=== PATIENT | male | born 1960 | race Caucasian/White ===

== ENCOUNTER 2023-03-08 06:50 | Emergency (ER) | payer OTHER, SELFPAY ==
[2023-03-08] VITALS (26 sets, daily range): BP systolic 89–115; BP diastolic 41–68; PULSE 86–103; RESP 18; TEMP 36.3–36.7; O2SAT 93–98; BMI 47.8
--- NOTE | 2023-03-08 07:22 | CRLHL7_ITS ---
For Patients: As a result of the Century Cures Act, medical imaging exams and procedure reports are released immediately into your electronic medical record. You may view this report before your referring provider. If you have questions, please contact your health care provider. Indication: Scrotal and perineal pain and swelling. Diabetes. Technique: CT examination of the pelvis was performed. Contrast was not administered. Imaging was acquired from below the umbilicus through the upper thighs. Sagittal and coronal reformatted imaging was performed. Please note that all CT scans at this facility use dose modulation, iterative reconstruction, and/or weight-based dosing when appropriate to reduce radiation dose to as low as reasonably achievable. Comparison: None Findings: There is cutaneous and subcutaneous induration of the perineum and especially the scrotum. A small amount of fluid is noted in the scrotal sac. There is considerable gas within the scrotal sac and the surrounding perineal soft tissues. No definite measurable collection. 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 Appropriate emergent consultation recommended. Discussed with Dr. Sr at 9:12 a.m. on March 08, 2023 Impression: Findings consistent with Sofy`s gangrene. Please note that all CT scans at this facility use dose modulation, iterative reconstruction, and/or weight-based dosing when appropriate to reduce radiation dose to as low as reasonably achievable. Dictated by Sanket Pride MD @ 03/08/2023 9:13:35 AM (Electronically Signed)
--- NOTE | 2023-03-08 07:25 | ED_ITS ---
HPI - General Adult General Chief complaint: Unspecified Complaint, Adult Stated complaint: testicles swollen/infected Time Seen by Provider: 03/08/23 07:10 History of Present Illness HPI narrative: pt states seen urgent care thursday. states abcess in groin with pus, told it wasnt big enough to drain at the time. states yesterday testicles started swelling. ibuprofen 600 at 0500. rx sulfa-trimeth abx. 62-year-old man presenting to the emergency department with concern of scrotal and perineal swelling and pain. Apparently does have a history of a perineal abscess drained in urgent care office maybe a year ago. Seen 2 days ago by same provider in same office apparently and reviewing notes from this encounter it appears that there was not evidence of cellulitis on exam but some ?mild swelling and tenderness? in the right joon scrotal area and without scrotal involvement. Was diagnosed with cellulitis and initiated on Bactrim. It has since swelled quite a bit. He says he is having difficulty urinating as this penis has disappeared. Has started draining some pus in the area and he acknowledges that it smells bad. Last night did have some chills but otherwise has not measured a fever. Pain is intense now. He does not know whether not he had sat on his scrotum. No abdominal pain otherwise. Underlying history of metastatic prostate cancer with history of hormone treatments. Also had radiation. Hospital cares been at [facility] Home Medications Medication Instructions Recorded Confirmed blood sugar diagnostic (FreeStyle 03/08/23 03/08/23 Lite Strips) dulaglutide 1.5 mg/0.5 mL 1.5 mg subcut 03/08/23 subcutaneous pen injector ([facility]) glipizide 10 mg tablet, extended 10 mg PO DAILY 03/08/23 03/08/23 release 24 hr insulin glargine-yfgn 100 unit/mL 75 unit subcut DAILY 03/08/23 03/08/23 (3 mL) subcutaneous pen losartan 50 mg tablet 50 mg PO DAILY 03/08/23 03/08/23 metformin 1,000 mg tablet 1,000 mg PO BID 03/08/23 03/08/23 relugolix 120 mg tablet (Orgovyx) 120 mg PO DAILY 03/08/23 03/08/23 sulfamethoxazole 800 1 tab PO BID 03/08/23 03/08/23 mg-trimethoprim 160 mg tablet tamsulosin 0.4 mg capsule 0.4 mg PO DAILY 03/08/23 03/08/23 triamterene 37.5 1 tab PO DAILY 03/08/23 03/08/23 mg-hydrochlorothiazide 25 mg tablet Allergies Allergy/AdvReac Type Severity Reaction Status Date / Time No Known Drug Allergies Allergy Verified 03/08/23 07:02 Review of Systems Status of ROS: Reports: 6 or more systems reviewed and unremarkable except as noted in History and below PFSH [facility] Social History Smoking Status: Current every day smoker How often do you have a drink containing alcohol: never AUDIT-C Alcohol total score: 0 Non-prescribed substance use: denies use Exam Narrative: Exam Narrative: Pleasant. Seated with loose shorts legs spread in a chair when I enter the room. There is certainly a malodorous smell in the room. Upon removing his underwear there is some staining consistent with some purulent drainage. Clearly very uncomfortable with transitions. Is breathing easily limited by body habitus otherwise. Heart is in an elevated rate. Was tachycardic on triage. Abdomen is obese soft and nontender. Examination of the genitourinary/perineal area shows softball size scrotum. It is soft. Mildly erythematous but not overtly cellulitic with only minimal calor. The penis has disappeared into the swelling. Exquisitely tender generally to palpation. On the underside is an oval darkened/black and/cade patch of skin maybe a little more than 2 in in maximal dimension. Within this palpates crepitus consistent with subcutaneous gas. Further along the perineum there is a quarter-sized area of pinker erythema with a central punctum from where I believe purulence is coming. This is right of midline. Mildly swollen here and also tender. Const: Vital Signs, click to edit/add: Vital Signs - 24 hr 03/08/23 06:59 03/08/23 07:40 03/08/23 07:45 Temperature 98.1 F 97.5 F L Pulse Rate [Left P ulse Oximeter] 103 H 91 Respiratory Rate 18 18 Respiratory Rate [ Testicular] 18 Blood Pressure [Ri ght Upper Arm] 115/68 97/47 L Pulse Oximetry 96 93 Oxygen Delivery Me thod Room Air Room Air 03/08/23 08:00 03/08/23 08:40 Temperature 97.4 F L Pulse Rate [Left P ulse Oximeter] 90 89 Respiratory Rate 18 18 Respiratory Rate [ Testicular] Blood Pressure [Ri ght Upper Arm] 91/50 L 98/52 L Pulse Oximetry 94 97 Oxygen Delivery Me thod Room Air Room Air Documenting provider has reviewed patient's vital signs: yes Course Vital Signs Vital signs: Initial Vital Signs Temperature 98.1 F 03/08/23 06:59 Temperature Source Temporal Artery Scan 03/08/23 06:59 Pulse Rate 103 H 03/08/23 06:59 Respiratory Rate 18 03/08/23 06:59 Blood Pressure 115/68 03/08/23 06:59 Blood Pressure Mean 83 03/08/23 06:59 Blood Pressure Position Sitting 03/08/23 06:59 Pulse Oximetry 96 03/08/23 06:59 Oxygen Delivery Method Room Air 03/08/23 06:59 Vital Signs Temperature 98.1 F 03/08/23 06:59 Pulse Rate 103 H 03/08/23 06:59 Respiratory Rate 18 03/08/23 06:59 Blood Pressure 115/68 03/08/23 06:59 Pulse Oximetry 96 03/08/23 06:59 Oxygen Delivery Method Room Air 03/08/23 06:59 Temperature 97.4 F L 03/08/23 08:40 Pulse Rate 89 03/08/23 08:40 Respiratory Rate 18 03/08/23 08:40 Blood Pressure 98/52 L 03/08/23 08:40 Pulse Oximetry 97 03/08/23 08:40 Oxygen Delivery Method Room Air 03/08/23 08:40 Medical Decision Making MDM Narrative Medical decision making narrative: Placed rolled towels to elevate scrotum in the bed. I have significant concerns regarding gangrenous material here. Will be collecting blood cultures as well. Will need a pelvic CT scan. Sofy's gangrene is in differential beyond simple perineal abscess. I suppose there could be some secondary orchitis as well. Anticipate surgical consult and antibiotics. I would have concerns of evolving sepsis. 0825 - I had a couple conversations with general surgeon Dr. Casas who shares above concerns. Labs are returning confirming evidence of sepsis. Blood pressure is little soft. Initially 115 systolic now 91 systolic on repeated measurements. Zosyn and vanco ordered at this point. Creatinine already at 2.4. CT of pelvis will be now done without contrast; gas should still be visible. Corrected sodium of 131 [facility] is at capacity. We have contacted [place] who do have ICU beds. I did review these pelvic images and looks to have subcutaneous gas consistent with exam. Abscess noted as well as generalized inflammatory changes in the perineum. Over-read pending. 912 -- I spoke with Radiology who confirms findings consistent with Sofy's gangrene Systolic blood pressure 105 with a map of 66 Final Report: Indication: Scrotal and perineal pain and swelling. Diabetes. Technique: CT examination of the pelvis was performed. Contrast was not administered. Imaging was acquired from below the umbilicus through the upper thighs. Sagittal and coronal reformatted imaging was performed. Please note that all CT scans at this facility use dose modulation, iterative reconstruction, and/or weight-based dosing when appropriate to reduce radiation dose to as low as reasonably achievable. Comparison: None Findings: There is cutaneous and subcutaneous induration of the perineum and especially the scrotum. A small amount of fluid is noted in the scrotal sac. There is considerable gas within the scrotal sac and the surrounding perineal soft tissues. No definite measurable collection. 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 Appropriate emergent consultation recommended. Discussed with Dr. Sr at 9:12 a.m. on March 08, 2023 Impression: Findings consistent with Sofy`s gangrene. Please note that all CT scans at this facility use dose modulation, iterative reconstruction, and/or weight-based dosing when appropriate to reduce radiation dose to as low as reasonably achievable. Dictated by Sanket Pride MD @ 03/08/2023 9:13:35 AM Pending conversation again with [place], am hopeful for transport there for further cares at change of shift Lab Data Lab results reviewed: Yes I reviewed the patient's lab results Labs: Lab Results 03/08/23 Range/Units 07:40 WBC 28.30 H* (4.50-11.00) K/uL RBC 4.20 L (4.30-5.90) m/uL Hgb 11.5 L (13.5-17.5) gm/dL Hct 33.5 L (37.0-53.0) % MCV 80 (80-100) fL MCH 27 (26-34) pg MCHC 34 (32-36) gm/dL RDW Coeff of Kati 13.1 (11.5-15.5) % Plt Count 368 (140-440) K/uL Neut % (Auto) 90.0 H (42.0-72.0) % Lymph % (Auto) 2.7 L (20-44) % [place] % (Auto) 5.5 (0.0-11.0) % Eos % (Auto) 0.2 (0.0-7.0) % Baso % (Auto) 0.1 (0.0-3.0) % Neut # (Auto) 25.50 H (1.7-7.0) K/uL Lymph # (Auto) 0.80 L (0.90-2.90) K/uL [place] # (Auto) 1.60 H (0.00-0.90) K/UL Eos # (Auto) 0.10 (0.00-0.50) K/uL Baso # (Auto) 0.00 (0.00-0.30) K/uL Abs Immat Gran (auto) 0.40 H (0.00-0.30) K/uL Imm/Tot Granulo (auto) 1.5 % Diff Slide Review Acceptable Review (Acceptable) Sodium 124 L* (135-149) mmol/L Potassium 3.9 (3.6-5.1) mmol/L Chloride 91 L (96-114) mmol/L Carbon Dioxide 17 L (20-32) mmol/L BUN 40 H (7-30) mg/dL Creatinine 2.4 H (0.5-1.5) mg/dL Estimated Creat Clear 30.22 Estimated GFR 30 ml/min Glucose 568 H* (60-115) mg/dL Lactate 2.1 H (0.5-1.9) mmol/L Calcium 8.3 L (8.4-10.6) mg/dL C-Reactive Protein 25.3 H (0.5-1.0) mg/dL Critical Care Time Critical Care Time Critical Care Time: Yes Attestation: The patient required my highest level preparedness to intervene emergently and I personally spent this critical care time directly and personally managing the patient. This critical care time included: Obtaining a history; Examining the patient; Pulse oximetry; Ordering and reviewing of studies; Arranging urgent treatment with development of a management plan; Evaluation of patients response to treatment; Frequent reassessment discussions with other providers. This critical care time was performed to assess and manage the high probability of imminent life-threatening deterioration that could result in multiorgan failure. It was exclusive of separate billable procedures and treating other patients and teaching time. Total Critical Care Time in Minutes: 60 Discharge Plan Discharge Clinical Impression: Abscess of deep perineal space, Sofy's gangrene, Sepsis Patient Disposition: Pending Disposition Prescriptions: No Action losartan 50 mg tablet 50 mg PO DAILY glipizide 10 mg tablet extended release 24hr 10 mg PO DAILY (DME) FreeStyle Lite Strips Strip MISCELLANEOUS BID sulfamethoxazole-trimethoprim 800-160 mg tablet 1 tab PO BID tamsulosin 0.4 mg capsule 0.4 mg PO DAILY metformin 1,000 mg tablet 1,000 mg PO BID triamterene-hydrochlorothiazid 37.5-25 mg tablet 1 tab PO DAILY Trulicity 1.5 mg/0.5 mL pen injector 1.5 mg subcut Orgovyx 120 mg tablet 120 mg PO DAILY insulin glargine-yfgn 100 unit/mL (3 mL) insulin pen 75 unit subcut DAILY Follow Up/Referrals: Provider,Not a Local [Primary Care Provider] -
[2023-03-08] MEDS: HYDROmorphone 0.5 mg/0.5 ml inj 1 MG IVP ×2 (07:48→09:40)
[2023-03-08 07:49] LABS: Lactate* 2.1 mmol/L (0.5-1.9)
[2023-03-08 07:52] LABS: Basophils Percent Auto 0.1 % (0.0-3.0); Eosinophils Percent Auto 0.2 % (0.0-7.0); Hematocrit 33.5 % (37.0-53.0); Hemoglobin* 11.5 gm/dL (13.5-17.5); Immature Granulocytes Pct Auto 1.5 %; Lymphocytes Percent Auto 2.7 % (20-44); Mean Corpuscular HGB Conc 34 gm/dL (32-36); Mean Corpuscular Hemoglobin 27 pg (26-34); Mean Corpuscular Volume 80 fL (80-100); Monocytes Percent Auto 5.5 % (0.0-11.0); Platelet Count* 368 K/uL (140-440); RDW Coefficient of Variation % 13.1 % (11.5-15.5)
--- NOTE | 2023-03-08 08:00 | ED.NURSE ---
Pain improved after dilaudid dose, 5/10. Patient informed he needs to remain NPO and is agreeable. Toothette provided for cotton mouth feeling. NS initiated.
[2023-03-08] MEDS: 0.9 % SODIUM CHLORIDE 1000 ml 1,000 ML IV (08:02)
[2023-03-08 08:08] LABS: Chloride* 91 mmol/L (96-114); Potassium* 3.9 mmol/L (3.6-5.1)
[2023-03-08 08:10] LABS: Creatinine* 2.4 mg/dL (0.5-1.5); Est. Creatinine Clearance* 30.22; Estimated Glomerular Filt Rate 30 ml/min
[2023-03-08 08:11] LABS: Blood Urea Nitrogen* 40 mg/dL (7-30); Carbon Dioxide* 17 mmol/L (20-32)
[2023-03-08 08:12] LABS: Calcium* 8.3 mg/dL (8.4-10.6)
[2023-03-08 08:15] LABS: Glucose* 568 mg/dL (60-115); Sodium* 124 mmol/L (135-149)
[2023-03-08 08:16] LABS: Slide Review Reflex Yes
[2023-03-08 08:22] LABS: Slide Review Acceptable Review (Acceptable)
[2023-03-08 08:27] LABS: C Reactive Protein* 25.3 mg/dL (0.5-1.0)
[2023-03-08] MEDS: LACTATED RINGERS 1000 ML 1,000 ML IV (08:52)
[2023-03-08] MEDS: PIPERACILLIN/TAZOBACTAM 4.5 GM in 0.9 % SODIUM CHLORIDE Mini-bag 100 ML IVPB (08:56)
== END 2023-03-08 11:15 | disposition short-term general hospital (02) ==
PROVIDERS: Family Medicine; Emergency Provider Family Medicine
DX: A41.9 Sepsis, unspecified organism (principal); L02.215 Cutaneous abscess of perineum; I96 Gangrene, not elsewhere classified
CPT/HCPCS: 36415; 72192; 80048; 83605; 85025; 86140; 87040; 96365; 96375; 99284; 99291; A0425; A0434; J1170; J2543; J3370; J7030; J7120